=== PATIENT | male | born 1950 | race Caucasian/White ===

== ENCOUNTER 2016-08-15 10:40 | Emergency (ER) | payer MEDICARE, OTHER ==
[~2016-08-15 10:40] MED LIST: AMARYL1 M1 PO; AMIODARONE HCL200 MG PO; AMLODIPINE BESYL5 MG PO; ASPIRIN EC LOW81 MG; ASPIRIN325 MG; BL MAXEPA CAPSU1 CAP; BYSTOLIC5 M1 PO; BYSTOLIC5 MG PO; CALCARB 600 W-V1 TAB; CALCIUM + D 6001 TAB; CALCIUM 600 +1 EA22 PO; CALCIUM W/VITA PO; CALTRATE 600 W1 EACH PO; CEFDINIR300 M1 PO; CEFDINIR300 MG PO; CELLCEPT250 MG; CELLCEPT250 MG PO; CELLCEPT500 M1 PO; CELLCEPT500 MG PO; CLARITIN10 M2 PO; CLEOCIN HCL300 MG PO; CLOPIDOGREL75 M1 PO; COMPAZINE10 M PO; COUMADIN2.5 M1 PO; COUMADIN2.5 MG PO; COUMADIN5 MG PO; COZAAR25 M1 PO; COZAAR25 MG PO; COZAAR50 MG; COZAAR50 MG PO; CULTURELLE1 CA1 PO; CYTOMEL5 MC1 PO; DILTIAZEM ER180 M2 PO; DILTIAZEM PO; ECOTRIN81 M1 PO; EES/SULFISOXAZ100 ML; ERYTHROMYCIN E400 MG; FELODIPINE ER5 M2 PO; IMDUR30 MG; IMDUR30 MG PO; IMDUR60 M1 PO; IMDUR60 MG PO; ISOSORBIDE MONO60 M3 PO; KEFLEX500 M4 PO; KEFLEX500 MG PO; LASIX40 MG PO; LEVAQUIN250 M1 PO; LEVAQUIN500 MG PO; LEVOFLOXACIN500 MG PO; LEVOTHROID125 MCG PO; LEVOTHROID150 MCG PO; LEVOTHROID175 MCG PO; LEVOTHYROXINE137 MC1; LEVOXYL125 MC1 PO; LEVOXYL25 MCG PO; LOSARTAN POTASS25 MG PO; LOSARTAN POTASS50 MG PO; LOVENOX100 MG/1 M SC; LOVENOX150 MG/ML SQ; MAGNESIUM200 MG PO; MAGNESIUM250 M1 PO; MAGNESIUM400 M2 PO; MAGNESIUM400 MG PO; MEDROL4 MG/DOSE- PO; METOPROLOL TART25 MG PO; MULTAQ400 MG PO; MULTIVITAMIN1 CAP; NEORAL100 MG; NEORAL100 MG PO; NEORAL25 M1 PO; NEORAL25 MG PO; NIACIN FLUSH FR1 CAP PO; NIACIN500 MG PO; NITROQUICK0.4 MG SL; NITROSTAT0.4 MG/TAB SL; NORCO 5-325 TA1 EACH PO; NORVASC10 M1 PO; NORVASC10 MG PO; NORVASC5 M1 PO; NORVASC5 MG; NORVASC5 MG PO; OMEGA 3 1,0001 EACH PO; OMEGA 3 500 SO1 EACH PO; PACERONE200 M1 PO; PACERONE200 MG PO; PERCOCET 5MG/AP1 TA1 PO; PLAVIX75 MG; PLAVIX75 MG PO; PREDNISONE5 M1 PO; PREDNISONE5 MG; PREDNISONE5 MG PO; PRENATAL-U CAPS1 CAP PO; PRENATE ADVANCE; PROTONIX40 M1 PO; PROTONIX40 M2 PO; PROTONIX40 MG; PROTONIX40 MG PO; SOTALOL80 MG PO; SULFAMYLON453.6 GM TP; SYNTHROID112 MCG PO; SYNTHROID125 MC1 PO; SYNTHROID125 MCG; SYNTHROID125 MCG PO; SYNTHROID137 MCG PO; SYNTHROID175 MCG PO; SYNTHROID200 MCG PO; TAMIFLU75 MG PO; TOPROL; TOPROL PO; TOPROL XL100 MG; TOPROL XL100 MG PO; TOPROL XL25 MG PO; TOPROL XL50 MG; TOPROL XL50 MG PO; ULTRAM50 MG; VITAMIN D-3400 UNIT PO; VITAMIN D31000 UNI3 PO; VITAMIN D31000 UNIT PO; [UNRECOGNIZED DRUG - OTHER] EXT; [UNRECOGNIZED DRUG - OTHER] PO; [UNRECOGNIZED DRUG - OTHER] PO; [UNRECOGNIZED DRUG - OTHER] PO; [UNRECOGNIZED DRUG - OTHER] PO; [UNRECOGNIZED DRUG - OTHER] PO
[2016-08-15] MEDS ORDERED: SYNTHROID125 MC1 PO (11:32)
[2016-08-15] MEDS ORDERED: PNV PRENATAL P1 EACH PO (11:34)
[2016-08-15] MEDS ORDERED: VALSARTAN40 MG PO (11:34)
[2016-08-15 12:02] LABS: URINE BILIRUBIN NEGATIVE (NEG); URINE BLOOD SMALL (NEG); URINE GLUCOSE (UA) NEGATIVE (NEG); URINE KETONE NEGATIVE (NEG); URINE LEUKOCYTE ESTERASE POSITIVE (NEG); URINE NITRITE NEGATIVE (NEG); URINE PROTEIN SMALL (NEG); URINE SPECIFIC GRAVITY 1.005 (1.003-1.030)
[2016-08-15 12:06] LABS: URINE APPEARANCE HAZY; URINE COLOR YELLOW
[2016-08-15 12:11] LABS: URINE BACTERIA 1+
[2016-08-15] MEDS ORDERED: COUMADIN4 M1 PO (12:14)
[2016-08-15] MEDS ORDERED: COUMADIN5 M2 PO (12:14)
[2016-08-15] MEDS ORDERED: MAGNESIUM OXID400 M1 PO (12:25)
[2016-08-15] MEDS ORDERED: NIACIN500 M2 PO (12:26)
[2016-08-15 12:32] LABS: INR 2.5 INR (0.9-1.1); PROTHROMBIN TIME 30.4 SECONDS (9.0-13.6)
[2016-08-15 12:59] LABS: BASO % 0.6 % (0-2); BASO ABSOLUTE COUNT 0.1 tho/cmm (0.0-0.2); EOS % 0.5 % (0-7); HCT-HEMATOCRIT 41.9 % (36.0-53.5); HGB-HEMOGLOBIN 14.1 gm/dl (13.5-17.0); IMMATURE GRANULOCYTES ABSOLUTE 0.02 tho/cmm (0-0.03); IMMATURE GRANULOCYTES PERCENT 0.2 % (0-0.3); LYMPH % 7.2 % (20-45); LYMPH ABSOLUTE COUNT 0.6 tho/cmm (0.8-4.5); MCH (MEAN CORPUSCULAR HGB) 30.7 pg (28.0-32.0); MCHC MEAN CORPUSCULAR HGB CONC 33.7 % (32.0-36.0); MCV (MEAN CELL VOLUME) 91.3 fl (82.0-96.0); MEAN PLATELET VOLUME 11.3 cmc (9.4-12.4); MONO % 11.9 % (0-12); NEUTROPHIL ABSOLUTE COUNT 6.5 tho/cmm (1.6-8.0); NEUTROPHIL-AUTOMATED 6.5 tho/cmm (1.6-8.0); NEUTROPHILS % 79.6 % (40-80); PLATELET COUNT 179 tho/cmm (150-450); RED BLOOD COUNT 4.59 mil/cmm (4.40-5.70); RED CELL DISTRIBUTION WIDTH 14.6 % (12.4-16.4); WHITE BLOOD COUNT 8.2 tho/cmm (4.0-10.0)
[2016-08-15 13:01] LABS: ALB/GLOB RATIO 0.8 (0.8-2.0); ALBUMIN 3.4 g/dl (3.5-5.0); ALKALINE PHOSPHATASE 131 U/L (33-138); ALT/SGPT 43 U/L (12-78); BILIRUBIN,TOTAL 0.5 mg/dl (0.0-1.5); BLOOD UREA NITROGEN 40 mg/dl (6-24); C-REACTIVE PROTEIN 1.8 mg/dl (0-0.9); CALCIUM 8.7 mg/dl (8.5-10.5); CARBON DIOXIDE-VENOUS 22 mmol/L (22-32); CHLORIDE 110 mmol/l (96-110); GLUCOSE 161 mg/dL (70-110); SODIUM 138 mmol/L (135-145); eGFR VALUE FOR BLACK 39 mL/Min
[2016-08-15 13:07] LABS: ANION GAP 11 mmol/L (0-20); AST/SGOT 44 U/L (10-40); LIPASE 2248 U/L (73-393)
[2016-08-15] MEDS ORDERED: COMPAZINE10 MG PO (15:04)
== END 2016-08-15 15:28 ==
LOC: EDMED 10:40
PROVIDERS: Emergency Medicine
DX: K85.90 Acute pancreatitis without necrosis or infection, unspecified (principal); R74.8 Abnormal levels of other serum enzymes; E11.22 Type 2 diabetes mellitus with diabetic chronic kidney disease; I12.9 Hypertensive chronic kidney disease with stage 1 through stage 4 chronic kidney disease, or unspecified chronic kidney disease; N18.9 Chronic kidney disease, unspecified; I48.91 Unspecified atrial fibrillation; I25.10 Atherosclerotic heart disease of native coronary artery without angina pectoris; Z94.0 Kidney transplant status; Z86.718 Personal history of other venous thrombosis and embolism; Z94.83 Pancreas transplant status; Z90.49 Acquired absence of other specified parts of digestive tract; Z79.01 Long term (current) use of anticoagulants; Z79.899 Other long term (current) drug therapy
CPT/HCPCS: J0780; J1720; J7030